=== PATIENT | female | born 1960 | race Caucasian/White ===

== ENCOUNTER 2019-04-27 15:39 | Inpatient (IN) ==
--- NOTE | 2019-04-27 16:26 | PROVIDER DOCUMENTATION ---
HPI-General Adult - General Chief Complaint: Fall Stated Complaint: FALL / CONFUSED Time Seen by Provider: 04/27/19 16:10 Source: patient, family Allergies/Adverse Reactions: Patient Allergies Allergy/AdvReac Type Severity Reaction Status Date / Time amoxicillin Allergy Unknown Verified 04/17/19 11:07 clavulanic acid Allergy Unknown Verified 04/17/19 11:09 [From Augmentin] doxycycline Allergy Unknown Verified 04/17/19 11:07 latex Allergy Unknown Verified 04/17/19 11:09 Penicillins Allergy Unknown Verified 04/17/19 11:07 promethazine [From Phenergan] Allergy Unknown Verified 04/17/19 11:09 Sulfa (Sulfonamide Allergy Unknown Verified 04/17/19 11:07 Antibiotics) Home Medications: Home Medication List Medication Instructions Recorded Confirmed Last Taken Type Amlodipine Besylate 5 mg PO DAILY 03/02/16 04/17/19 09/25/17 History Bismuth Subsalicylate Chew Tab 524 mg PO PRN PRN 03/02/16 04/17/19 09/25/17 History [Pepto-Bismol Chew Tab] Cyanocobalamin 1,000 microgm IM DIRECTED 03/02/16 04/17/19 09/25/17 History Dicyclomine HCl 20 mg PO 4XDAY 03/02/16 04/17/19 09/25/17 History Duloxetine HCl 30 mg PO DAILY 03/02/16 04/17/19 09/25/17 History Fluticasone 50 Mcg Nasal [place] 1 spray SCOTT DAILY 03/02/16 04/17/19 09/25/17 History [Flonase] Ibuprofen 400 mg PO Q6H PRN PRN 03/02/16 04/17/19 09/25/17 History Loperamide HCl [Anti-Diarrheal] 2 mg PO Q4H PRN PRN MDD 4 03/02/16 04/17/19 09/25/17 History Naproxen 250 mg PO DAILY 03/02/16 04/17/19 09/25/17 History Mupirocin Cream [Bactroban Cream] 1 applicatn TOP TID 03/03/16 04/17/19 09/25/17 History LISINOpril [Prinivil] 20 mg PO BID #0 tablet 03/05/16 04/17/19 09/25/17 Rx Cyanocobalamin (Vitamin B-12) 1,000 mcg IJ ORDERED 04/17/19 04/17/19 Unknown History [Cyanocobalamin Injection] Doxycycline [Vibramycin] 100 mg PO BID 04/17/19 04/17/19 Unknown History Famotidine 20 mg PO DAILY 04/17/19 04/17/19 Unknown History Loratadine 10 mg PO DAILY 04/17/19 04/17/19 Unknown History Nitrofurantoin [place]/Macrocryst 100 mg PO BID #20 cap 04/17/19 Unknown Rx [Macrobid] Potassium Chloride 10 meq PO DAILY 04/17/19 04/17/19 Unknown History Tolterodine [Detrol] 4 mg PO DAILY 04/17/19 04/17/19 Unknown History - History of Present Illness -Gen Adult Nature of Presenting Problems: Patient is a non-toxic appearing 58 year white female who presents to the ER today with complaints of multiple falls and AMS. Patient states she lives alone and is no longer able to care for herself. She states since Wednesday, she has fallen x 4, with complaints of right knee and left hip pain. Patient also reports she has venous stasis ulcer to [facility] and is currently followed by the wound care clinic and Dr. Gan. Patient currently has home health coming twice weekly fro dressing changes. Patient denies any fever, chills, hematuria, or dysuria. She states she has chronic diarrhea. Patient states she uses a walker for ambulation, but it is still falling with use of walker. Family at bedside and report they are concerned she has not been taking medications as prescribed as she is often coming up short on pills. Family concerned patient is no longer able to care for herself due to increasing weakness. Family reports this is patients second ED visit this month for AMS and weakness. She reports PCP as Dr. Reeves. Similar Symptoms Previously?: No Recently seen or treated by another doctor?: No Review of Systems - Adult - REVIEW OF SYSTEMS - ADULT Constitutional: reports: no symptoms reported Eyes: reports: no symptoms reported Ears, Nose, Mouth & Throat: reports: no symptoms reported Cardiovascular: reports: no symptoms reported Respiratory: reports: no symptoms reported Gastrointestinal: reports: diarrhea (chronic). denies: abdominal pain, nausea, poor appetite, vomiting Genitourinary: denies: dysuria, flank pain, hematuria, hesitency, urinary retention, urgency Musculoskeletal: reports: other (right knee and left hip pain) Integumentary: reports: skin sores/ulcer (LLE with ulcers, dressings intact) Neurological: reports: dizziness/vertigo, other (intermittent AMS) Psychiatric: reports: no symptoms reported Endocrine: reports: no symptoms reported Hematologic/Lymphatic: reports: no symptoms reported Allergic/Immunologic: reports: no symptoms reported All Other Systems: Reviewed and Negative Past History - Adult - PAST MEDICAL HISTORY-ADULT Review of Records: reports: Old Records Reviewed, Nursing Assessment Review, Medications Reviewed, Social history reviewed & non-contributory. Major Childhood Illnesses: reports: denies history Cardiovascular: reports: CAD, CHF, HTN, PVD Respiratory: reports: other (pickwikian syndrome) Gastrointestinal: reports: denies history Obstetrical/Gynecological: reports: denies history Genitourinary: reports: denies history Musculoskeletal: reports: denies history Neurological: reports: denies history Psychiatric: reports: depression Endocrine/Immune: reports: Diabetes Other Conditions: reports: denies history - PRIOR SURGERIES/PROCEDURES Surgical/Procedure History: reports: reviewed, not pertinent - IMMUNIZATION STATUS Childhood Immunizations: See Nurse Assessment Flu Vaccine: See Nurse Assessment - FAMILY HISTORY Family History: reviewed, not pertinent - SOCIAL HISTORY Smoking: denies Living Situation: alone Physical Exam-General - PHYSICAL EXAM-ADULT Initial Vital Signs Reviewed: Yes - CONSTITUTIONAL General Appearance: appears well, alert - EYES Eyes: PERRL/EOMI - HEAD, EARS, NOSE, MOUTH & THROAT HENMT: normocephalic/atraumatic, moist mucous membranes - NECK Neck: non-tender, full range of motion - RESPIRATORY Respiratory: chest non-tender, lungs clear, normal breath sounds - CARDIOVASCULAR Cardiovascular: normal peripheral pulses, regular rate, rhythm, other (generalized peripheral edema, venous stasis ulcer to LLE) - GASTROINTESTINAL (ABDOMEN) Abdominal Exam: non tender, soft - MUSCULOSKELETAL Back Exam: normal inspection Extremity: pedal edema, other (generalized weakness) - SKIN Integumentary: warm/dry - NEUROLOGIC Neurologic: grossly normal - PSYCHIATRIC Psych/Mental Status: normal mood/affect, normal thought content, normal thought process, oriented x 3 (patient currently AOX3) Progress - PLAN OF CARE/RESULTS Progress/Plan/Lab Results: Vital Signs - 8 hr 04/27/19 15:59 Temperature 98 F Pulse Rate 60 Respiratory Rate 18 Blood Pressure 102/53 O2 Sat by Pulse Oximetry 100 Orders Category Date Time Status Saline Loc NOW Care 04/27/19 16:18 Active CHEST-2 VIEWS [RAD] Stat Exams 04/27/19 16:19 Ordered KNEE 3 VIEWS RIGHT [RAD] Stat Exams 04/27/19 16:19 Ordered XRAY HIP UNILATERAL LT [RAD] Stat Exams 04/27/19 16:19 Ordered CBC WITH ELECTRONIC DIFF [HEME] Stat Lab 04/27/19 16:18 Uncollected COMPREHENSIVE METABOLIC PANEL [CHEM] Stat Lab 04/27/19 16:18 Uncollected URINALYSIS W/POSS RFLX CULT [URINALYSIS] Stat Lab 04/27/19 16:18 Uncollected POC discussed with patient and family,questions answered, understanding voiced. Dr. Ventura paged in regards to possible hospital admission. 1950: Dr. Ventura agrees to admission for AMS, weakness. Result Diagrams: 04/27/19 18:43 04/27/19 18:04 Departure - Departure Date of Disposition Decision: 04/27/19 Time of Disposition Decision: 19:54 DIAGNOSIS: Weakness, Multiple falls AMS (altered mental status) Qualifiers: Altered mental status type: unspecified Qualified Code(s): R41.82 - Altered mental status, unspecified Disposition: ADMITTED INPATIENT 09 Certified Medical Emergency: Urgent Condition: Stable Referrals and Follow-Ups: None,PCP [Primary Care Provider] - - Critical Care Note This patient required my direct & personal management of CC.: No Attestation - Physician/ RASHAWN Attestation Patient care was provided by Advanced Practice Provider:: Yes Advanced Practice Provider:: Pratibha Burk Advanced Practice Provider documentation review:: The Mid-level provider documentation, treatment plan and medical decision making was reviewed by the physician who agrees with all treatment and medical decision making by the [facility]. The physician spent face to face time with patient:: No Advanced Practice Provider documentation review:: Supervising physician onsite and consulted in the evaluation and care of this patient. The physician did not have a face to face encounter with the patient.
[2019-04-27 16:56] LABS: URINE SOURCE CLEAN CATCH
[2019-04-27 16:59] LABS: BILIRUBIN URINE NEGATIVE (NEGATIVE); BLOOD URINE NEGATIVE (NEGATIVE); COLOR YELLOW; GLUCOSE URINE NEGATIVE (NEGATIVE); KETONE URINE NEGATIVE (NEGATIVE); LEUKOCYTES URINE TRACE (NEGATIVE); NITRITE URINE NEGATIVE (NEGATIVE); PH URINE 5.5; PROTEIN URINE TRACE mg/dL (NEGATIVE); SP GRAVITY URINE 1.025; TURBIDITY URINE HAZY (CLEAR); UROBILINOGEN URINE NORMAL (NORMAL)
[2019-04-27 17:05] LABS: UR EPITHELIAL CELLS <10 /HPF (<10); URINE BACTERIA NEGATIVE /HPF; URINE RBC <10 /HPF (<10); URINE WBC <10 /HPF (<10)
[2019-04-27 17:24] LABS: URINE CASTS NONE SEEN; URINE CRYSTALS CA OXALATE PRESENT; URINE SMALL ROUND CELLS NONE SEEN; URINE YEAST NONE SEEN
--- NOTE | 2019-04-27 17:42 | Diag Imaging Result Doc PS360 ---
EXAM: CHEST-2 VIEWS HISTORY: SOB TECHNIQUE: Two views COMPARISON: 04/17/2019 FINDINGS: The lungs are poorly expanded. The heart is not enlarged. The vessels are not distended. There are no infiltrates. No pleural effusions. IMPRESSION: No acute abnormality. Electronically signed by Yehuda Perez 04/27/2019 5:40 PM
--- NOTE | 2019-04-27 17:44 | Diag Imaging Result Doc PS360 ---
EXAM: KNEE 3 VIEWS RIGHT HISTORY: FALL TECHNIQUE: Three views COMPARISON: None. FINDINGS: No fracture. No dislocation. There is arthritis. IMPRESSION: No acute bony injury. Electronically signed by Yehuda Perez 04/27/2019 5:42 PM
--- NOTE | 2019-04-27 17:49 | Diag Imaging Result Doc PS360 ---
EXAM: XRAY HIP UNILATERAL LT HISTORY: fall TECHNIQUE: Two views COMPARISON: None. FINDINGS: No fracture. No dislocation. IMPRESSION: No acute bony injury. Electronically signed by Yehuda Perez 04/27/2019 5:46 PM
[2019-04-27 18:41] LABS: AGAP 15; ALKALINE PHOSPHATASE 89 U/L (32-104); BUN 16 mg/dL (8-22); CALCIUM 10.1 mg/dL (8.8-10.2); CHLORIDE 100 mmol/L (98-107); COSMO 280; CREATININE 0.7 mg/dL (0.5-0.9); ESTIMATED GFR > 60; GLUCOSE 116 mg/dL (70-104); GOT 73 U/L (10-30); GPT 21 U/L (10-36); POTASSIUM 4.9 mmol/L (3.5-5.1); SODIUM 139 mmol/L (136-145); TCO2 25 mmol/L (25-35); TOTAL PROTEIN 8.5 g/dL (6.3-8.3)
[2019-04-27] MEDS ORDERED: MOTRIN PO ONE (18:48)
[2019-04-27 18:50] LABS: BASO# 0.03 X1000 (0.0-0.2); BASO% 0.4 % (0.0-0.8); EOS# 0.28 X1000 (0.0-0.7); EOS% 3.8 % (0.0-10.0); HEMATOCRIT 35.7 % (37.0-47.0); HEMOGLOBIN 11.1 g/dL (12.0-16.0); LYMPH# 1.31 X1000 (1.2-3.4); LYMPH% 17.7 % (20.5-51.1); MCH 25.8 PG (27-31); MCHC 31.1 g/dL (33-37); MONO# 0.52 X1000 (0.11-0.59); MPV 10.9 FL (7.4-10.4); NEUT# 5.26 X1000 (1.4-6.5); NEUT% 71.1 % (42.2-75.2); PLT 260 X1000 (130-400); RDW 15.7 % (11.5-14.5)
[2019-04-27] MEDS ORDERED: TYLENOL PO PRN (20:59)
[2019-04-28] MEDS ORDERED: MOTRIN PO PRN (08:33)
[2019-04-28] MEDS ORDERED: IMODIUM PO PRN (08:33)
[2019-04-28] MEDS ORDERED: LEVAQUIN 500 MG/D5W 500 MG/100 ML IVPB IV ONE (08:45)
[2019-04-28] MEDS: BACTROBAN OINTMENT TOP SCH ×3 (11:18→16:48)
[2019-04-28] MEDS: BENTYL PO SCH ×4 (11:18→21:03)
[2019-04-28] MEDS: CLARITIN PO SCH (11:18)
[2019-04-28] MEDS: CYMBALTA PO SCH (11:19)
[2019-04-28] MEDS: FLONASE NAS SCH (11:19)
[2019-04-28] MEDS: PRINIVIL PO SCH ×2 (11:20→21:03)
[2019-04-28] MEDS: NORVASC PO SCH (11:20)
[2019-04-28] MEDS: KLOR-CON PO SCH (11:20)
[2019-04-28] MEDS: PEPCID PO SCH (11:20)
[2019-04-28] MEDS: DETROL PO SCH (12:42)
[2019-04-28] MEDS: PEPTO-BISMOL CHEW TAB PO PRN (14:38)
[2019-04-28] MEDS: ULTRAM PO PRN (15:31)
--- NOTE | 2019-04-29 05:17 | HISTORY AND PHYSICAL ---
CHIEF COMPLAINT: Fall and confusion. HISTORY OF PRESENT ILLNESS: The patient is a 58-year-old female who presented to the ER with multiple falls. Her family notes that she has been confused at times. She does live at home alone. They note that she has not been caring for her activities of daily living recently. She has fallen 4 times since Wednesday. She does have right knee and left hip pain. Has a stasis ulcer on her left thigh that has been followed by Dr. Gan [facility] with frequent dressings. Denies any fevers, chills. Denies any hematuria, dysuria. Does have chronic diarrhea. States that she requires a walker for ambulation. The family notes that she has been mis-taking her medications recently. ALLERGIES: Amoxil, doxycycline, latex, penicillin, Phenergan, and sulfa. MEDICATIONS: Norvasc 5, Pepto-Bismol, duloxetine 30, Naprosyn, lisinopril. PAST MEDICAL HISTORY: Significant for chronic IBS. She has chronic edematous changes in her left lower extremity. Has marked edema with broken skin in her left thigh. Has history of coronary disease, congestive heart failure, hypertension, Pickwickian syndrome, peripheral vascular disease, diabetes. FAMILY HISTORY: Noncontributory. SOCIAL HISTORY: She does not smoke or drink. Lives at home alone currently. PHYSICAL EXAMINATION: VITAL SIGNS: Reviewed. She is afebrile, pulse 60, respiratory 18, BP 102/53, saturating 100% on room air. GENERAL: Patient is awake, pleasant. She is in no current respiratory distress. HEENT: Normocephalic. NECK: Supple. CARDIOVASCULAR: Regular rate. CHEST: Clear and nonlabored. ABDOMEN: Soft, nondistended. EXTREMITIES: She is noted to have a venous stasis ulceration on her left thigh as well as edematous chronic changes in her left walker. Has peripheral edema bilaterally. ABDOMEN: Soft, obese, nondistended. EXTREMITIES: Moves all extremities but generalized weakness. Does have pedal edema bilaterally. NEUROLOGIC: She is awake, alert, oriented. LABORATORIES: Hemoglobin and hematocrit 11 and 35. ASSESSMENT: 1. Generalized weakness with multiple falls. 2. Coronary artery disease. 3. Congestive heart failure. 4. Hypertension. 5. Peripheral vascular disease. 6. Diabetes with hyperglycemia. PLAN: We are going to admit patient to the hospital, get physical therapy involved. Continue her home medications. Further orders as needed. cc: Shaheed Ventura MD
[2019-04-29] MEDS: CYMBALTA PO SCH (08:56)
[2019-04-29] MEDS: CLARITIN PO SCH (08:56)
[2019-04-29] MEDS: BACTROBAN OINTMENT TOP SCH ×3 (08:56→17:03)
[2019-04-29] MEDS: NORVASC PO SCH (08:56)
[2019-04-29] MEDS: PEPCID PO SCH (08:56)
[2019-04-29] MEDS: BENTYL PO SCH ×4 (08:56→21:33)
[2019-04-29] MEDS: KLOR-CON PO SCH (08:56)
[2019-04-29] MEDS: DETROL PO SCH (08:56)
[2019-04-29] MEDS: PRINIVIL PO SCH ×2 (08:56→21:33)
[2019-04-29] MEDS: FLONASE NAS SCH (08:57)
[2019-04-29] MEDS ORDERED: TUMS PO PRN (10:18)
--- NOTE | 2019-04-29 18:53 | PROGRESS NOTE ---
DATE: 04/29/2019 SUBJECTIVE: The patient notes that she is still struggling to get out of bed. Denies any current fevers or chills. PHYSICAL EXAMINATION: Vital Signs: Reviewed. Temperature is 97, pulse 57, respiratory rate 18, BP 133/56. General: Patient is a pleasant, morbidly obese female who is in no current respiratory distress, sitting in bed. HEENT: Normocephalic, atraumatic. Cardiovascular: Regular rate and rhythm. Abdomen: Soft. Extremities: Moves extremities. ASSESSMENT: 1. Generalized weakness with adult failure to thrive and frequent falls. 2. Known coronary artery disease. 3. Congestive heart failure. 4. Hypertension. 5. Diabetes. PLAN: Continue patient in hospital. Continue physical therapy. I will continue to follow. cc: Shaheed Ventura MD
[2019-04-30] MEDS: FLONASE NAS SCH (09:00)
[2019-04-30] MEDS: PRINIVIL PO SCH ×2 (09:01→21:59)
[2019-04-30] MEDS: KLOR-CON PO SCH (09:01)
[2019-04-30] MEDS: CYMBALTA PO SCH (09:01)
[2019-04-30] MEDS: CLARITIN PO SCH (09:01)
[2019-04-30] MEDS: BENTYL PO SCH ×4 (09:01→21:59)
[2019-04-30] MEDS: NORVASC PO SCH (09:01)
[2019-04-30] MEDS: BACTROBAN OINTMENT TOP SCH ×3 (09:01→16:30)
[2019-04-30] MEDS: PEPCID PO SCH (09:01)
[2019-04-30] MEDS: DETROL PO SCH (09:01)
[2019-04-30] MEDS: PEPTO-BISMOL CHEW TAB PO PRN (12:30)
--- NOTE | 2019-04-30 12:40 | Diag Imaging Result Doc PS360 ---
LUMBAR SPINE 2-VIEWS - 04/30/2019 INDICATION: pain TECHNIQUE: COMPARISON: None FINDINGS: Alignment is straightened. There is advanced degeneration at L3-4 and L5-S1. At these levels there is vacuum disc phenomenon. At L5-S1 there is significant endplate irregularity and sclerosis. No fracture or subluxation. There is moderate degeneration of the sacroiliac joints. There are surgical clips and surgical suture lines in the epigastrium and left upper quadrant. IMPRESSION: Advanced degenerative changes. Electronically signed by Claude Arboleda 04/30/2019 12:38 PM
[2019-04-30] MEDS: ULTRAM PO PRN (13:00)
--- NOTE | 2019-04-30 18:12 | PROGRESS NOTE ---
DATE: 04/30/2019 SUBJECTIVE: The patient has a multitude of complaints today. She complains of her left hip, left leg, low back hurting. She complains of diarrhea from her chronic IBS. Notes that she fell multiple times over the past several weeks causing increased pain. X-ray of her L-spine is effectively normal. She has already had an x-ray of her knee, hip, and chest, all of which were normal. OBJECTIVE: Vital signs: Temperature 97, pulse 57, respiratory rate 18, BP 125/63. General: Patient is a morbidly obese female who is in no respiratory distress. She is sitting up in bed, saturating 100% on room air. She is awake, alert, oriented. HEENT: Normocephalic. Neck: Supple. Cardiovascular: Regular rate. Chest: Clear. Abdomen: Soft. Extremities: She does have venous stasis ulcerations of her left thigh, as well as chronic edematous changes in her left walker. She is able to move all extremities, although generalized weakness. ASSESSMENT: 1. Irritable bowel syndrome. We will continue Bentyl as tolerated. 2. Generalized weakness with multiple falls. Continue physical therapy. 3. Coronary artery disease. 4. Congestive heart failure. 5. Peripheral vascular disease. PLAN: We are going to continue physical therapy. Ask Order Booker for assistance. It is going to be very difficult for Ms. Morgan to be able to discharge home. cc: Shaheed Ventura MD
[2019-05-01 08:22] VITALS: BP 152/64
[2019-05-01] MEDS ORDERED: DETROL LA PO SCH (09:00)
[2019-05-01] MEDS: NORVASC PO SCH (09:14)
[2019-05-01] MEDS: CLARITIN PO SCH (09:14)
[2019-05-01] MEDS: PEPCID PO SCH (09:14)
[2019-05-01] MEDS: PRINIVIL PO SCH (09:14)
[2019-05-01] MEDS: CYMBALTA PO SCH (09:14)
[2019-05-01] MEDS: BENTYL PO SCH (09:14)
[2019-05-01] MEDS: KLOR-CON PO SCH (09:14)
[2019-05-01] MEDS: FLONASE NAS SCH (09:17)
[2019-05-01] MEDS: BACTROBAN OINTMENT TOP SCH (09:18)
--- NOTE | 2019-05-01 10:54 | DISCHARGE SUMMARY ---
ADMISSION DATE: 04/28/2019 DISCHARGE DATE: 05/01/2019 PRIMARY CARE PHYSICIAN: None. ADMISSION DIAGNOSES: 1. Generalized weakness with multiple falls. 2. Coronary artery disease. 3. Congestive heart failure. 4. Hypertension. 5. Peripheral vascular disease. 6. Diabetes with hyperglycemia. DISCHARGE DIAGNOSES: 1. Irritable bowel syndrome. 2. Generalized weakness with multiple falls. 3. Coronary artery disease. 4. Congestive heart failure. 5. Peripheral vascular disease. SUMMARY OF FINDINGS: This is a 58-year-old female who presented to the ER with multiple falls. The family was noting that she had been confused at times. Lives alone at home, not been caring for her activities of daily living recently. She fell 4 times since Wednesday. Complained of some right knee and left hip pain. She had a stasis ulcer on her left thigh that is followed by Dr. Gan [facility] with frequent dressings. States that she does require a walker with ambulation. Family also notes that she had been mistaking her medications recently. She was admitted. We did do a unilateral hip x-ray that showed no fracture, no acute bony injury. Knee x- ray showed no acute bony injury. Lumbar spine x-ray showed advanced degenerative changes. We consulted physical therapy. program services assistant consulted and discussed rehab versus home health. Patient did not want rehab and agreed to home health, so it is felt now that she can safely be discharged home with home health services to continue physical therapy. DISCHARGE MEDICATIONS: Will include amlodipine 5 mg p.o. daily, Pepto-Bismol p.o. p.r.n., dicyclomine 20 mg p.o. 4 times daily, duloxetine 30 mg p.o. daily, famotidine 20 mg p.o. daily, Flonase 1 spray nasally daily, lisinopril 20 mg p.o. b.i.d., loperamide 2 mg p.o. q.4 hours p.r.n., loratadine 10 mg p.o. daily, Bactroban cream topically t.i.d., potassium 10 mEq p.o. daily, Detrol 4 mg p.o. daily, cyanocobalamin 1000 mcg IM as directed, doxycycline 100 mg p.o. b.i.d., ibuprofen 400 mg p.o. q.6 hours p.r.n., naproxen 250 mg p.o. daily. FOLLOWUP: She will be followed by home health at home and she does need to obtain a primary care physician. We can certainly give her the physician referral line. All discharge instructions have been reviewed with the patient and she verbalizes understanding. This is a 35 minute discharge. Dictated by DILMA Grissom for Shaheed Ventura MD cc: DILMA Grissom MD
--- NOTE | 2019-05-02 08:14 | DISCHARGE SUMMARY ---
ADMISSION DATE: 04/28/2019 DISCHARGE DATE: 05/01/2019 HOSPITAL COURSE: The patient was admitted with generalized weakness, multiple falls, congestive heart failure, coronary artery disease, and peripheral vascular disease. She was treated the usual fashion. Thankfully, she had an uneventful hospital course. Physical therapy was consulted. On discharge, patient is awake, alert. She will be discharged to rehab. cc: Shaheed Ventura MD
== END 2019-05-01 13:56 | DRG 948 ==
LOC: P.ED 15:39 → P.EDIPHOLD 04-28 06:26 → P.MEDSURG 04-28 08:40
PROVIDERS: ATTEND Family Medicine